=== PATIENT | female | born 1975 | race Two or more races ===

== ENCOUNTER 2018-10-02 11:32 | Outpatient (CLI) | payer OTHER ==
[~2018-10-02 11:32] MED LIST: KETO10TA2 PO; MOTRIN800 MG PO
== END 2018-10-02 20:57 | disposition home or self-care (01) ==
LOC: OBS/DEL 11:32
DX: O76 Abnormality in fetal heart rate and rhythm complicating labor and delivery (principal); Z34.83 Encounter for supervision of other normal pregnancy, third trimester

== ENCOUNTER 2018-10-19 00:05 | Outpatient (CLI) | payer OTHER ==
[2018-10-19] MEDS ORDERED: PROTONIX IV40 MG PO (09:17)
[2018-10-19] MEDS ORDERED: ZOFRAN4 MG/5 ML PO (09:18)
[2018-10-19] MEDS ORDERED: KEFLEX500 MG PO (09:25)
== END 2018-10-19 11:34 | disposition home or self-care (01) ==
LOC: OBS/DEL 00:05
DX: O26.893 Other specified pregnancy related conditions, third trimester (principal); T62.8X1A Toxic effect of other specified noxious substances eaten as food, accidental (unintentional), initial encounter; Z34.83 Encounter for supervision of other normal pregnancy, third trimester; Y92.89 Other specified places as the place of occurrence of the external cause

== ENCOUNTER 2018-11-20 19:07 | Inpatient (IN) | payer OTHER ==
[~2018-11-20] VITALS: Ht 167.6 cm; Wt 106.1 kg
[~2018-11-20 19:07] MED LIST changes: +KEFLEX500 MG PO; +PROTONIX IV40 MG PO; +ZOFRAN4 MG/5 ML PO
[2018-11-20] MEDS ORDERED: PRENATAL TABLE1 EAC1 PO (20:47)
== END 2018-11-29 13:43 | disposition home or self-care (01) | DRG 788 ==
LOC: LDR 19:07 → OB/GYN 19:07
PROVIDERS: ADMIT Obstetrics & Gynecology
PROC: BY4FZZZ Ultrasonography of Third Trimester, Single Fetus (ICD-10-PCS; 2018-11-20)
PROC: 4A1HXCZ Monitoring of Products of Conception, Cardiac Rate, External Approach (ICD-10-PCS; 2018-11-26)
PROC: 10D00Z1 Extraction of Products of Conception, Low, Open Approach (ICD-10-PCS; principal; 2018-11-26 03:00)
DX: O60.14X0 Preterm labor third trimester with preterm delivery third trimester, not applicable or unspecified (principal); Z3A.35 35 weeks gestation of pregnancy; Z37.0 Single live birth; O34.211 Maternal care for low transverse scar from previous cesarean delivery; O75.82 Onset (spontaneous) of labor after 37 completed weeks of gestation but before 39 completed weeks gestation, with delivery by (planned) cesarean section